=== PATIENT | male | born 2000 | race African-American/Black ===

== ENCOUNTER 2019-01-13 13:37 | Emergency (ER) | payer OTHER ==
[2019-01-13 13:40] VITALS: BP 138/65
--- NOTE | 2019-01-13 14:11 | PHYS DOC ---
Adult General Chief Complaint Chief Complaint: LACERATION/AVULSION [facility] HPI 18-year-old male presents with presents acuity fortune laceration. The patient states that he fell and lacerated his chin yesterday. He was certainly more than 12 hours ago. He was evaluated by [facility] staff today and given his tetanus shot. They were concerned he may need stitches so they sent him to the emergency room. Patient denies any other concerns or complaints. Review of Systems Review of Systems Constitutional: Denies fever or chills [] Eyes: Denies change in visual acuity, redness, or eye pain [] HENT: Denies nasal congestion or sore throat [] Respiratory: Denies cough or shortness of breath [] Cardiovascular: No additional information not addressed in HPI [] GI: Denies abdominal pain, nausea, vomiting, bloody stools or diarrhea [] : Denies dysuria or hematuria [] Musculoskeletal: Denies back pain or joint pain [] Integument: Chin laceration[] Neurologic: Denies headache, focal weakness or sensory changes [] Endocrine: Denies polyuria or polydipsia [] All other systems were reviewed and found to be within normal limits, except as documented in this note. Physical Exam Physical Exam Constitutional: Well developed, well nourished, no acute distress, non-toxic appearance. [] HENT: Normocephalic, atraumatic, bilateral external ears normal, oropharynx moist, no oral exudates, nose normal. [] Eyes: PERRLA, EOMI, conjunctiva normal, no discharge. [] Neck: Normal range of motion, no tenderness, supple, no stridor. [] Cardiovascular:Heart rate regular rhythm, no murmur [] Lungs & Thorax: Bilateral breath sounds clear to auscultation [] Abdomen: Bowel sounds normal, soft, no tenderness, no masses, no pulsatile masses. [] Skin: The patient's chin laceration is very superficial and there is no gapping the tissue. It already appears to be sealing itself off to heal. [] Back: No tenderness, no CVA tenderness. [] Extremities: No tenderness, no cyanosis, no clubbing, ROM intact, no edema. [] Neurologic: Alert and oriented X 3, normal motor function, normal sensory function, no focal deficits noted. [] Psychologic: Affect normal, judgement normal, mood normal. [] EKG EKG [] Radiology/Procedures Radiology/Procedures [] Course & Med Decision Making Course & Med Decision Making Pertinent Labs and Imaging studies reviewed. (See chart for details) Given the delay in treatment and the superficial nature of the wound, I do not believe stitches are beneficial. This will heal well on its own. I will place the patient on Keflex for 7 days and give the first dose emergency room. I will also write for the patient after lab appointment daily in the [facility]. I have stressed to him the importance of keeping it clean. He is stable for discharge at this time. [] Dragon Disclaimer Dragon Disclaimer This electronic medical record was generated, in whole or in part, using a voice recognition dictation system. Departure Departure: Impression: Primary Impression: Laceration of chin without complication Disposition: HOME, SELF-CARE Condition: STABLE Referrals: PCP,NO (PCP) Patient Instructions: Facial Laceration, [id number] Script[facility] Cephalexin (KEFLEX) 500 Mg Capsule 1 CAP PO TID for infection prophylaxis for 7 Days, #21 CAP 0 Refills Prov: WALTER HUTCHINSON DO 01/13/19 Neomy Sulf/Bacitrac Zn/Poly (Triple Antibiotic Ointment) 1 Each Oint.pack 1 EACH TP DAILY for prevent infection of chin lac for 4 Days, #4 PKT Prov: WALTER HUTCHINSON DO 01/13/19 Problem Qualifiers Primary Impression: Laceration of chin without complication Encounter type: initial encounter Qualified Codes: S01.81XA - Laceration without foreign body of other part of head, initial encounter WALTER HUTCHINSON DO Jan 13, 2019 14:11
[2019-01-13] MEDS ORDERED: NEOM1OIN6 TP (14:19)
[2019-01-13] MEDS ORDERED: CEPH-264 PO (14:19)
[2019-01-13] MEDS ORDERED: NEOMY/BACITR/POLYMYXIN OINT PACKET. TP ONE (14:30)
== END 2019-01-13 14:34 | disposition home or self-care (01) ==
LOC: EEVIPCON 13:37 → ER 13:37
DX: S01.81XA Laceration without foreign body of other part of head, initial encounter (principal); W18.39XA Other fall on same level, initial encounter; Y93.89 Activity, other specified; Y92.89 Other specified places as the place of occurrence of the external cause; Y99.8 Other external cause status
CPT/HCPCS: 99283